=== PATIENT | male | born 1940 | race Caucasian/White ===

== ENCOUNTER 2018-05-04 16:01 | Inpatient (IN) | payer OTHER ==
[~2018-05-04] VITALS: Ht 172.7 cm; Wt 64.2 kg
--- NOTE | 2018-05-04 16:11 | ED MVC/FALL/TRAUMA COMPLAINT ---
History of Present Illness General Chief Complaint: Fall Stated Complaint: MECHANICAL FALL Source: patient Exam Limitations: no limitations Vital Signs & Intake/Output Vital Signs & Intake/Output Vital Signs Date Time Temp Pulse Resp B/P B/P Pulse O2 O2 Flow FiO2 Mean Ox Delivery Rate 05/06 2153 98.5 76 18 122/60 96 Room Air 05/06 1418 98.1 72 18 108/68 96 Room Air 05/06 0621 98.2 62 18 130/72 94 Room Air ED Intake and Output 05/07 0000 05/06 1200 Intake Total 860 240 Output Total 350 700 Balance 510 -460 Intake, IV 30 Intake, Oral 830 240 Output, Urine 350 700 Patient 142 lb Weight Weight Bed scale Measurement Method Triage Nurses Notes Reviewed? yes Onset: Abrupt Duration: minute(s):, constant Timing: single episode today Severity: mild, moderate Method of Injury: fall Loss of Consciousness: no loss of consciousness HPI: 77-year-old male comes into the emergency room for further evaluation of right hip pain after falling in the [employer] parking lot. Patient reports that his feet got caught on the ground and he fell over. denies hitting his head. Denies any neck pain or rib pain. He's got some baseline confusion according to the that's being evaluated by the PCP. She reports that when they found him he was lying on the ground stunned and his eyes were open but he was not responding. He denies any chest pain shortness of breath lightheaded dizziness prior to the fall. He is currently alert and oriented 3. (Michele Wetzel) Allergies Coded Allergies: No Known Allergies (05/05/18) Reconcile Medications Atorvastatin Calcium 10 MG TABLET 1 TAB PO DAILY hl (Reported) Cholecalciferol (Vitamin D3) (Vitamin D3) 1,000 UNIT CAPSULE 1 CAP PO DAILY supplement (Reported) Donepezil HCl 10 MG TABLET 1 TAB PO DAILY dementia (Reported) Enalapril/Hydrochlorothiazide (Enalapril-Hctz 10-25 MG Tablet) 10 MG-25 MG TABLET 1 TAB PO DAILY htn (Reported) Escitalopram Oxalate (Lexapro) 5 MG TABLET 1 TAB PO DAILY DEPRESSION ( Reported) Lorazepam 0.5 MG TABLET 1 TAB PO DAILY NEEDED anxiety (Reported) doesnot take it any more Multivitamin (Multivitamins) 1 EACH CAPSULE 1 CAP PO DAILY SUPPLEMENT ( Reported) (Sara GRIMES,Ricardo Nuñez) Past History Travel History Traveled to [place] past 21 day No Medical History Any Pertinent Medical History? see below for history Other Medical Hx: dementia? Surgical History Surgical History: non-contributory Psychosocial History Where do you live Home Who do you live with Spouse What is your primary language Norwegian Tobacco Use: Never used ETOH Use: denies use Family History Hx Contributory? No (Michele Wetzel) Review of Systems Review of Systems Constitutional: Reports: no symptoms. Eyes: Reports: no symptoms. Ears, Nose, Throat, Mouth: Reports: no symptoms. Respiratory: Reports: no symptoms. Cardiovascular: Reports: no symptoms. Gastrointestinal/Abdominal: Reports: no symptoms. Genitourinary: Reports: no symptoms. Musculoskeletal: Reports: see HPI. Skin: Reports: no symptoms. Neurological/Psychological: Reports: no symptoms. All Other Systems: Reviewed and Negative (Michele Wetzel) Physical Exam Physical Exam General Appearance: well developed/nourished, alert, awake Head: atraumatic Eyes: Bilateral: normal appearance. Ears, Nose, Throat, Mouth: hearing grossly normal, moist mucous membrane Neck: normal inspection Respiratory: no respiratory distress Cardiovascular: regular rate/rhythm Back: normal inspection Extremities: Full range of motion of right hip, some mild pain with internal/ external rotation, Neurologic/Psych: awake, alert, oriented x 3 Skin: intact, normal color Core Measures ACS in differential dx? No CVA/TIA Diagnosis No Sepsis Present: No Sepsis Focused Exam Completed? No (Michele Wetzel) Physical Exam Extremities: Full range of motion of right hip, some mild pain with internal/ external rotation, (Sara GRIMES,Ricardo Nuñez) Progress Differential Diagnosis: abd injury, C/T/L spine injury, ext injury, ICH, pelvis injury, pnemothorax, spinal cord injury Plan of Care: Orders Procedure Date/time Status Gait Training 05/06 UNK Complete Current Medications Sig/Chacha Start time Last Medication Dose Stop Time Status Admin Melatonin 5 MG AT BEDTIME 05/05 2100 AC 05/06 (Melatonin) 211 Atorvastatin Calcium 10 MG 1700 05/05 1700 AC 05/06 (Lipitor) 1842 Cholecalciferol 1,000 IU DAILY 05/05 0900 AC 05/06 (Vitamin D) 0928 Donepezil HCl 10 MG DAILY 05/05 09 AC 05/06 (Aricept) 927 Escitalopram Oxalate 5 MG DAILY 05/05 900 AC 05/06 (Lexapro) 09 Multivitamins 1 TAB DAILY 05/05 900 AC 05/06 (Theragran Vitamins) 927 Heparin Sodium 5,000 UNIT Q8 05/05 600 AC 05/06 (Porcine) 2115 Acetaminophen 650 MG Q4P PRN 05/04 2345 AC 05/06 (Tylenol) 2115 Acetaminophen 1,000 MG Q6P PRN 05/04 2345 AC (Ofirmev) Lisinopril 10 MG DAILY 05/04 2345 AC 05/06 (Prinivil) 927 Tramadol HCl 50 MG Q6 PRN 05/04 2345 AC (Ultram) Laboratory Tests 05/06/18 06: Anion Gap 10, Estimated GFR 58 L, BUN/Creatinine Ratio 22.5, CBC w Diff NO MAN DIFF REQ, RBC 4.00 L, MCV 91.0, MCH 31.5 H, MCHC 34.7, RDW 13.9, MPV 10.0, Gran % 66.4, Lymphocytes % 18.9 L, Monocytes % 10.1 H, Eosinophils % 3.9, Basophils % 0.7, Absolute Granulocytes 5.5, Absolute Lymphocytes 1.6, Absolute Monocytes 0.8 H, Absolute Eosinophils 0.3, Absolute Basophils 0.1 Diagnostic Imaging: Viewed by Me: Radiology Read, CT Scan. Discussed w/RAD: Radiology Read, CT Scan. Radiology Impression: PATIENT: AMY MORTON PRESENT AGE: 77 PATIENT ACCOUNT NO: [id number] : 38 LOCATION: [facility] ORDERING PHYSICIAN: Michele BLANKENSHIP SERVICE DATE: 05/04/18 EXAM TYPE: RAD - XRY-AP PELVIS; XRY-HIP 2-3 VIEWS, RIGHT EXAMINATION: XR PELVIS XR HIP, RIGHT CLINICAL INFORMATION: Right hip pain. Fall. COMPARISON: None TECHNIQUE: AP view of the pelvis and 3 views of the right hip. FINDINGS: Pelvic rings are intact. The sacroiliac joints are not diastatic. Both hips are normally positioned within the acetabular fossa. Specifically, no femoral head or neck fracture is seen. There are degenerative changes in the lower lumbar spine. Vascular calcifications are noted in the aorta and its branch vessels. The soft tissues appear normal. IMPRESSION: No pelvic or right hip fracture. DICTATED BY: Chuckie Sanchez MD DATE/TIME DICTATED:05/04/181801 KINDER TEACHER:STEPHANIE DATE/ TIME TRANSCRIBED:05/04/181801 CONFIDENTIAL, DO NOT COPY WITHOUT APPROPRIATE AUTHORIZATION. <Electronically signed in Other Vendor System> SIGNED BY: Chuckie Sanchez MD 05/04/181807 Initial ED EKG: normal sinus rhythm, rate (66), RBBB (Michele Wetzel) Departure Departure Disposition: HOME OR SELF CARE Condition: Stable Clinical Impression Primary Impression: Inferior pubic ramus fracture Additional Instructions: Take Tylenol as needed for pain. Follow-up with primary care doctor. Return if any concerns worsening symptoms. Please go over all results of today's visit with your primary care doctor. Contact your primary care doctor to let them know you were here in the emergency room. There may be nonspecific findings which may not be related to your visit today here in the emergency room but may require further evaluation and chronic monitoring by your primary care doctor. If you had a laceration today the chance of foreign body always remains. You should follow-up with your primary care doctor for recheck in 3-5 days for a wound check. If you had an x-ray done there is a chance that a fracture could have been missed on initial read and you should follow-up with your primary care doctor for repeat x-rays if symptoms persist. If your blood pressure was elevated here in the emergency room please have rechecked by [facility] primary care doctor within the next 48. If you were prescribed a narcotic here in the emergency room or any type of controlled substances you're not allowed to drive while taking this medication or operate any type of heavy machinery. Narcotics can make you feel lightheaded dizziness nausea and can cause constipation. You may need to medicinal plant picker a stool softener. Thank you for choosing [facility] emergency room. Please return to the emergency room immediately if you have any other concerns worsening of symptoms. Departure Forms: Customer Survey General Discharge Information Admission Note Spoke With: Khloe Rodney MD Documentation of Exam: Documentation of any treatments & extenuating circumstances including Concerns Regarding Discharge (functional status, medication knowledge or non-compliance, living conditions, etc.) that warrant an admission rather than observation: IV pain control. Short-term rehabilitation. Physical therapy. Nonweightbearing. Medically not safe for discharge. (Michele Wetzel) PA/BRIMMING MACHINE OPERATOR Co-Sign Statement Statement: ED Attending supervision documentation- [x] I saw and evaluated the patient. I have also reviewed all the pertinent lab results and diagnostic results. I agree with the findings and the plan of care as documented in the PA's/BRIMMING MACHINE OPERATOR's documentation. Patient presents for evaluation of right hip pain status post fall. Physical examination reveals good range of motion of the right hip with some tenderness on exam. The right lower extremity is neurovascularly intact. [] I have reviewed the ED Record and agree with the PA's/BRIMMING MACHINE OPERATOR's documentation. [] Additions or exceptions (if any) to the PAs/BRIMMING MACHINE OPERATOR's note and plan are summarized below: [] (Sara GRIMES,Ricardo Nuñez)
[2018-05-04 17:26] LABS: ABSOLUTE BASOPHIL COUNT 0.1 /CUMM (0.0-0.2); ABSOLUTE EOSINOPHIL COUNT 0.1 /CUMM (0.0-0.7); ABSOLUTE GRANULOCYTE CT 8.4 /CUMM (1.4-6.5); ABSOLUTE LYMPH COUNT 1.1 /CUMM (1.2-3.4); ABSOLUTE MONOCYTE COUNT 0.7 /CUMM (0.10-0.60); BASOPHIL % 0.7 % (0.0-2.0); EOSINOPHIL % 0.7 % (0-5); GRANULOCYTE % 81.6 % (42.2-75.2); HEMATOCRIT 36.2 % (42-52); MEAN CORPUSCULAR HGB 31.5 PG (27.0-31.0); MEAN CORPUSCULAR HGB CONC 34.2 G/DL (33.0-37.0); MEAN CORPUSCULAR VOLUME 92.3 FL (80.0-94.0); MEAN PLATELET VOLUME 8.6 FL (7.4-10.4); PLATELET COUNT 176 /CUMM (130-400); RBC DISTRIBUTION WIDTH 13.8 % (11.5-14.5); RED BLOOD CELL CT 3.92 /CUMM (4.70-6.10); WHITE BLOOD CELL COUNT 10.3 /CUMM (4.8-10.8)
--- NOTE | 2018-05-04 18:08 | RADIOLOGY REPORT ---
EXAMINATION: XR PELVIS XR HIP, RIGHT CLINICAL INFORMATION: Right hip pain. Fall. COMPARISON: None TECHNIQUE: AP view of the pelvis and 3 views of the right hip. FINDINGS: Pelvic rings are intact. The sacroiliac joints are not diastatic. Both hips are normally positioned within the acetabular fossa. Specifically, no femoral head or neck fracture is seen. There are degenerative changes in the lower lumbar spine. Vascular calcifications are noted in the aorta and its branch vessels. The soft tissues appear normal. IMPRESSION: No pelvic or right hip fracture.
--- NOTE | 2018-05-04 19:53 | CT SCAN REPORT ---
EXAMINATION: CT HEAD WITHOUT CONTRAST CLINICAL INFORMATION: May have hit head. Fall. COMPARISON: None. TECHNIQUE: Contiguous axial imaging was performed from the skull base to vertex without intravenous administration of contrast. DLP: 629.92 mGy-cm FINDINGS: There is no evidence of acute intracranial hemorrhage or territorial infarction. No abnormal mass effect or midline shift is seen. Perez to white matter differentiation is well preserved. No extra-axial fluid collections are identified. There is commensurate prominence of the ventricles and sulci consistent with moderate diffuse volume loss. There are extensive areas of low attenuation in the periventricular and subcortical white matter, consistent with chronic microvascular ischemic disease. There are likely small lacunar infarcts in the basal ganglia bilaterally. There is coarse calcification of the pineal gland. There are atheromatous calcifications of the bilateral cavernous internal carotid arteries and the vertebral arteries. There are no acute osseous findings. There are no large scalp contusions or hematomas. The mastoid air cells are well-aerated. There is significant opacification of the bilateral ethmoid and frontal sinuses. The maxillary sinuses are incompletely visualized. There appear to be sequelae of prior paranasal sinus surgery. IMPRESSION: 1. There are no acute bleeds or territorial infarcts. 2. Extensive white matter changes are consistent with chronic microvascular ischemic disease. A small area of more acute ischemia cannot be excluded on the basis of this study. There is moderate diffuse volume loss. 3. There are no acute fractures, and there are no large scalp contusions or hematomas. 4. There is significant ethmoid and frontal sinus opacification.
--- NOTE | 2018-05-04 21:07 | CT SCAN REPORT ---
EXAMINATION: CT PELVIS WITHOUT CONTRAST CLINICAL INFORMATION: Fall. Pain. Rule out pelvic fracture. COMPARISON: None TECHNIQUE: Helical scanning was performed with submillimeter collimation through the pelvis. Sagittal and coronal multiplanar 2-D reconstructions were obtained. DLP: 426 mGy-cm FINDINGS: There is a nondisplaced acute fracture of the right inferior pubic ramus with minimal comminution along the margins. No discrete fractures are identified at the right superior pubic ramus, however. Old healed fractures are present at both the inferior pubic rami. Left superior pubic ramus is intact. As seen on image 142/466 of series 2, there is a subtle buckle of the anterior cortex of the right sacral ala which is age-indeterminate, possibly acute. No significant displacement. The proximal femurs are intact bilaterally without evidence of femoral neck fracture. 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 Minimal osteoarthritis is present in the SI joints and pubic symphysis. Calcific atherosclerosis is present in the abdominal aorta and iliac arteries. There is a high reading right testicle within the distal aspect of the right inguinal canal. Mild aneurysmal dilatation of the infrarenal abdominal aorta is noted, measuring up to 3 cm in diameter. IMPRESSION: 1. Nondisplaced acute fracture of the right inferior pubic ramus. 2. Subtle cortical buckle at the anterior margin of the right sacral ala, likely corresponding to a nondisplaced acute fracture. 3. No additional acute fractures are identified. 4. Osteopenia
--- NOTE | 2018-05-04 22:06 | History & Physical ---
Filemon Garay MD,[facility] 05/04/186: General Information and HPI MD Statement: I have seen and personally examined AMY MORTON and documented this H&P. The patient is a 77 year old M who presented with a patient stated chief complaint of [fall]. Source of Information: patient, family Exam Limitations: no limitations History of Present Illness: Patient is 77 y M with PMH of HTN, Hlip, dementia, depression, occasional vertigo presented to ED after a fall. Patient's present at the bedside and contributing in history taking. Briefly patient was in usual state of health till this afternoon, he was walking in the [employer] parking lot, he intended to turn and his foot caught on the floor and he fell on his right side of body. Patient's found him later on the wheelchair when he was helped and placed on the wheelchair to other people. According to his he looked shock staring, and open mouth and was not responsive for few seconds, but was later alert and oriented and was initially refusing to come to hospital. According to patient he could remember the whole event, he could see people around him, he denied any head trauma, denied any shortness of breathing, chest pain, palpitation, dizziness, nausea vomiting, slurred speech, lightheadedness before fall. He also denied any shaking motions , urine or stool incontinence. Patient however endorsed pain in the right hip area with standing after the fall. According to his patient has slowed, shoveling gait in baseline and also has history of falls in the past. Patient denied smoking, using any re-creation of drug and reported drinking alcohol rarely. Past History Travel History Traveled to [place] past 21 day No Medical History Other Medical Hx: dementia? Surgical History Surgical History: non-contributory Past Family/Social History Psychosocial History Where do you live? Home ETOH Use: denies use Review of Systems Review of Systems Constitutional: Reports: see HPI. Exam & Diagnostic Data Last 24 Hrs of Vital Signs/I&O Vital Signs Date Time Temp Pulse Resp B/P B/P Pulse O2 O2 Flow FiO2 Mean Ox Delivery Rate 05/047 97.0 75 18 135/87 98 Room Air Room Air 05/04 1954 98.6 78 18 134/88 97 Room Air Room Air 05/04 1618 98.4 84 20 144/99 95 Room Air Room Air Physical Exam General Appearance Alert, Oriented X3, Cooperative, No Acute Distress Skin No Significant Lesion, skin abrasions Skin Temp/Moisture Exam: Warm/Dry Sepsis Skin Exam (color): Normal for Ethnicity HEENT Atraumatic, EOMI, mucous relatively dry, pupils reactive Cardiovascular Regular Rate, Normal S1, Normal S2 Lungs Clear to Auscultation, Normal Air Movement Abdomen Soft, No Tenderness Neurological Normal Gait, Normal Speech, Strength at 5/5 X4 Ext, Cranial Nerves 3-12 NL, refused 3 words exam Extremities No Edema, decreased range of motion in prox R LE due to pain, distal M and sensory normal Last 24 Hrs of Labs/Andre: Laboratory Tests 05/04/18 2310: Troponin I < 0.01 05/04/18 1715: Anion Gap 8, Estimated GFR 53 L, BUN/Creatinine Ratio 27.7 H, Glucose 133 H, Lactic Acid 1.4, Calcium 9.3, Total Bilirubin 0.6, AST 34, ALT 33, Alkaline Phosphatase 61, Creatine Kinase 69, Troponin I < 0.01, Total Protein 6.4, Albumin 3.8, Globulin 2.6, Albumin/Globulin Ratio 1.5, CBC w Diff NO MAN DIFF REQ, RBC 3.92 L, MCV 92.3, MCH 31.5 H, MCHC 34.2, RDW 13.8, MPV 8.6, Gran % 81.6 H, Lymphocytes % 10.4 L, Monocytes % 6.6, Eosinophils % 0.7, Basophils % 0.7, Absolute Granulocytes 8.4 H, Absolute Lymphocytes 1.1 L, Absolute Monocytes 0.7 H, Absolute Eosinophils 0.1, Absolute Basophils 0.1 Assessment/Plan Assessment: Patient is 77 y M presented after fall PMH of HTN, Hlip, dementia, depression, occasional vertigo VS, Ph Ex at admission: No fever, vitals significant Labs at admission: WBC 10.3, Hgb 12.4 Sodium and potassium normal, bicarbonate 32, BUN 36, creatinine 1.3, 10 creatinine ratio 27.7, others in significant Imagings at admission: Head CT: 1. There are no acute bleeds or territorial infarcts. 2. Extensive white matter changes are consistent with chronic microvascular ischemic disease. A small area of more acute ischemia cannot be excluded on the basis of this study. There is moderate diffuse volume loss. 3. There are no acute fractures, and there are no large scalp contusions or hematomas. 4. There is significant ethmoid and frontal sinus opacification. Pelvic, hip x-ray: No pelvic or right hip fracture. Pelvic CT: 1. Nondisplaced acute fracture of the right inferior pubic ramus. 2. Subtle cortical buckle at the anterior margin of the right sacral ala, likely corresponding to a nondisplaced acute fracture. 3. No additional acute fractures are identified. 4. Osteopenia Patient was admitted to telemetry floor for management of following conditions: Fall most likely mechanical Pelvic fracture SOFIA/CKD Chronic medical conditions - admit to GM floor - Bp/radiation monitor overnight - vital signs - gentle hydration after BP control - continue home medication - pain management, avoid sedating medication - Ortho consult - cosider start asprin - asp/fall percautions FC heart healthy diet DVT ppx: alps and pharmacological As Ranked By This Provider Problem List: 1. Inferior pubic ramus fracture Core Measures/Misc (08/09) Acute Coronary Syndrome ACS Diagnosis: No Congestive Heart Failure Congestive Heart Failure Diagnosis No Cerebrovascular Accident CVA/TIA Diagnosis: No VTE (View Protocol) VTE Risk Factors Age>40 No Mechanical VTE Prophylaxis d/t N/A MechProphylax Ordered No VTE Pharm Prophylaxis d/t NA PharmProphylax ordered Sepsis (View protocol) Sepsis Present: No If YES complete Sepsis Event Note If YES complete Sepsis Event Note Marcelino Londono 05/04/18 4922: General Information and HPI Allergies/Medications Home Med list Atorvastatin Calcium 10 MG TABLET 1 TAB PO DAILY hl (Reported) Cholecalciferol (Vitamin D3) (Vitamin D3) 1,000 UNIT CAPSULE 1 CAP PO DAILY supplement (Reported) Donepezil HCl 10 MG TABLET 1 TAB PO DAILY dementia (Reported) Enalapril/Hydrochlorothiazide (Enalapril-Hctz 10-25 MG Tablet) 10 MG-25 MG TABLET 1 TAB PO DAILY htn (Reported) Escitalopram Oxalate (Lexapro) 5 MG TABLET 1 TAB PO DAILY DEPRESSION ( Reported) Multivitamin (Multivitamins) 1 EACH CAPSULE 1 CAP PO DAILY SUPPLEMENT ( Reported) Core Measures/Misc (08/09) Sepsis (View protocol) If YES complete Sepsis Event Note If YES complete Sepsis Event Note Resident Review Statement Resident Statement: examined this patient, discussed with internet webmaster, agreed with internet webmaster Other Findings: Mr. Lynch is a 77-year-old male with past medical history of dementia, depression , previous vertigo, hypertension, hyperlipidemia presented to the emergency department after having of fall associated with brief episode of unresponsiveness. Apparently the patient was doing all right, when he along with his went to [facility] today afternoon prior to presentation, he was walking out of [facility] in the parking lot to its the garden section, when his was trying to put all the shopping bags back in the car when his rubber soled foot got stuck on the ground and he was trying to turn and had a fall on the right side. The fall was witnessed by some people around however his was not with him at that point. The surrounding people try to help him up from the ground and put him on a wheelchair, meanwhile the contacted and after being put on the wheelchair, he was unresponsive and was not responding to her for a few seconds. This unresponsiveness resolved spontaneously and he was then alert oriented and doing fine. He did not have any head trauma. He has had some bruises on the right elbow, and endorse some pain in the right hip area with standing after the fall. At baseline as per the he has shuffling gait and has had a few falls in the past but never anything major. He does walk slowly because of the unsteady gait. His vitals on presentation temperature of 98.6, pulse of 84, respiration of 20, blood pressure 144/99, he was saturating 95% on room air. Physical exam he was alert oriented 3, not in any acute distress however mild pain present on movement in the right hip area, right elbow had mild abrasions. Cardiovascular : S1-S2 present, no murmur. Lungs clear to auscultation, normal air movement. Abdomen soft nontender. Neurological nonfocal. Extremities no edema, pulses palpable bilaterally, sensations intact. Relevant labs white count of 10.4, H/H of 12.4/36.2, platelet of 176. Sodium of 138, potassium 3.9, BUN/creatinine 36/1.3, glucose of 133, lactic acid of 1.4, liver function tests within normal limits. Initial set of troponin was negative. Hip x-ray did not show any pelvic or right hip fracture X-ray pelvis showed intact pelvic bone. CT pelvis showed nondisplaced acute fracture of the right inferior pubic ramus, subtle cortical buckle at the anterior margin of the right sacral ala, likely corresponding to a nondisplaced acute fracture, no other acute fractures and osteopenia. CT head did not show any acute bleeds or infarcts, extensive white matter changes consistent with chronic microvascular ischemic disease, no acute fracture or scalp contusion/hematoma's, significant ethmoid and frontal sinus opacification. Problem list along with assessment and plan. Problem #1 mechanical fall associated with? Syncope/unresponsiveness for couple of seconds. * Continue to monitor on telemetry for any cardiac arrhythmias, continue to monitor intakes and output, continue to monitor vital signs, check orthostatic vital signs, continue generous hydration p.o., continue fall precautions, seizure precautions, aspiration precautions. * Ortho consult in a.m. * continue to monitor serial troponin and EKG, echocardiogram in a.m. * cardiology consult. #2 Pubic Rami and sacral Alar fracture. * Ortho consult in a.m. * PT/OT evaluation. * Evaluation for possible STI placement. * Most likely the above fractures will be treated conservatively, however further management per Ortho. * Continue pain management with Tylenol and tramadol for severe pain. #3.Hyperlipidemia. * Continue atorvastatin 10 mg daily. #4 depression. * Continue Lexapro 5 mg daily. #5 alzheimer * Continue Aricept 10 mg daily. #6 history of hypertension. * Continue lisinopril 10 mg daily. Patient is full code. Regular diet. DVT prophylaxis with heparin. Pain management with p.o. and IV Tylenol and tramadol. Khloe Rodney 05/05/18 0601: General Information and HPI Allergies/Medications Allergies: Coded Allergies: No Known Allergies (05/05/18) Core Measures/Misc (08/09) Sepsis (View protocol) If YES complete Sepsis Event Note If YES complete Sepsis Event Note Attending MD Review Statement Attending Statement Attending MD Statement: examined this patient, discuss w/resident/PA/PERSONAL SECRETARY, agreed w/resident/PA/PERSONAL SECRETARY, reviewed EMR data (avail), reviewed images, amended to note Attending Assessment/Plan: CC: Fall PMH: HTN, dementia, depression, HLD Patient states that he was outside the [employer] after grocery shopping, waiting for his to get a car, when he fell down it twisted leg on his buttocks because he felt that his shoe was stuck to ground and he could not move. It has happened to him in the past and he had multiple falls similar to this. Possibly worse by help him to sit on a wheelchair. At that time came back and found him more confused for a few minutes, staring eyes so EMS was called and patient was brought in ER. Patient denies any head trauma, presyncopal symptoms, lightheadedness, dizziness, any prodromal symptoms. Patient complains of right groin pain and hip pain, mostly while change in position other than that complete ROS unremarkable Vitals: Temperature 98.4, pulse 84, RR 20, blood pressure 144/99, saturating 94% on room air On exam: A O 3, cooperative, no acute distress, neck supple, JVD normal, no lymphadenopathy, mucosa moist, no focal neurological deficit, no dependent edema , no obvious skin rashes or inflammation CVS: S1-S2, RRR. RS: Clear to auscultate bilaterally. Abdomen: Soft, NT, ND, bowel sounds present. Pelvis CT without contrast: 1. Nondisplaced acute fracture of the right inferior pubic ramus. 2. Subtle cortical buckle at the anterior margin of the right sacral ala, likely corresponding to a nondisplaced acute fracture. 3. No additional acute fractures are identified. 4. Osteopenia CT head: 1. There are no acute bleeds or territorial infarcts. 2. Extensive white matter changes are consistent with chronic microvascular ischemic disease. A small area of more acute ischemia cannot be excluded on the basis of this study. There is moderate diffuse volume loss. 3. There are no acute fractures, and there are no large scalp contusions or hematomas. 4. There is significant ethmoid and frontal sinus opacification. Assessment and plan 77-year-old male was brought in ER after what appears to be mechanical fall. Patient had right groin pain after the fall, currently he gets with movements. Patient's noticed him to be confused for a few minutes after the fall and had staring spell. Even though patient recalls part of the fall memory is little blurred immediately after fall this syncope should be ruled out. Patient benefits admission on telemetry. Concussion is another possibility. + Fall + Rule out syncope + Right inferior pubic ramus and right sacral pallor fracture + History of HTN, dementia, depression, HLD - Admit to telemetry - Continuous telemetry monitoring - Serial troponin and EKG - Orthostatic vitals - 2-D echocardiogram in a.m. - Cardiology consult - DVT prophylaxis - Adequate pain control - Orthopedic consult - OT PT evaluation - Fall precaution - Evaluate for STIR
[2018-05-04] MEDS ORDERED: ESCITALOPRAM OXA5 MG PO (23:13)
[2018-05-04] MEDS ORDERED: ENALAPRIL-HCTZ1 EACH PO (23:13)
[2018-05-04] MEDS ORDERED: ATORVASTATIN CA10 M1 PO (23:13)
[2018-05-04] MEDS ORDERED: DONEPEZIL HCL10 M1 PO (23:13)
[2018-05-04] MEDS ORDERED: LORAZEPAM0.5 M1 PO (23:14)
[2018-05-04] MEDS ORDERED: VITAMIN D31000 UNI1 PO (23:14)
[2018-05-04] MEDS ORDERED: MULTIVITAMINS1 EAC8 PO (23:15)
[2018-05-04] MEDS ORDERED: LEXAPRO5 M1 PO (23:15)
[2018-05-05 00:44] VITALS: BP 112/56
[2018-05-05 05:50] LABS: ABSOLUTE BASOPHIL COUNT 0 /CUMM (0.0-0.2); ABSOLUTE EOSINOPHIL COUNT 0.1 /CUMM (0.0-0.7); ABSOLUTE GRANULOCYTE CT 8.9 /CUMM (1.4-6.5); ABSOLUTE LYMPH COUNT 1.4 /CUMM (1.2-3.4); ABSOLUTE MONOCYTE COUNT 0.8 /CUMM (0.10-0.60); BASOPHIL % 0.3 % (0.0-2.0); GRANULOCYTE % 78.9 % (42.2-75.2); HEMATOCRIT 36.3 % (42-52); MEAN CORPUSCULAR HGB 31.2 PG (27.0-31.0); MEAN CORPUSCULAR VOLUME 91.6 FL (80.0-94.0); MEAN PLATELET VOLUME 9.1 FL (7.4-10.4); PLATELET COUNT 160 /CUMM (130-400); RED BLOOD CELL CT 3.97 /CUMM (4.70-6.10); WHITE BLOOD CELL COUNT 11.3 /CUMM (4.8-10.8)
--- NOTE | 2018-05-05 06:03 | Admission Certification ---
Admission Certification Certification Statement - As attending physician, I certify that at the time of - admission, based on clinical presentation, severity of - symptoms, need for further diagnostic testing and - therapeutic interventions, and risk of adverse outcomes - without in-hospital treatment, in my clinical assessment, - this patient requires an acute hospital stay for a minimum - of two nights or longer. I have also considered psychsocial - factors such as support system, advanced age, financial - issues, cognitive issues, and failed out-patient treatments, - past re-admission history, safety of patient, and lack of - compliance as applicable. Specific rationale supporting this admission is: Fall, right pubic ramus fracture
[2018-05-05 07:07] VITALS: BP 120/56
--- NOTE | 2018-05-05 07:10 | PN- Housestaff ---
Yadira GRIMES,Karissa 05/05/18 0710: Subjective Follow-up For: Fall Rule out syncope Right inferior pubic ramus and right sacral pallor fracture History of HTN, dementia, depression, HLD Tele-Events Since Last Visit: Normal sinus rhythm, 64, 0.16, 0.2, bundle branch block Subjective: Patient was seen and examined at bedside, no overnight events, stable vitals, denies any complaints other than pain in his right hip Review of Systems Constitutional: Reports: see HPI. Objective Last 24 Hrs of Vital Signs/I&O Vital Signs Date Time Temp Pulse Resp B/P B/P Pulse O2 O2 Flow FiO2 Mean Ox Delivery Rate 05/05 0707 98.2 67 12 120/56 95 Room Air 05/05 0044 99.0 68 12 112/56 98 Room Air 05/05 0017 97.0 75 18 135/87 05/04 2257 97.0 75 18 135/87 98 Room Air Room Air 05/04 1954 98.6 78 18 134/88 97 Room Air Room Air 05/04 1618 98.4 84 20 144/99 95 Room Air Room Air Intake & Output 05/05 1600 05/05 0800 05/05 0000 Intake Total Output Total 100 Balance -100 Output, Urine 100 Patient 133 lb 150 lb Weight Weight Bed scale Estimated Measurement Method Physical Exam General Appearance: Alert, Oriented X3, Cooperative, No Acute Distress HEENT: Atraumatic, PERRLA, EOMI, Mucous Membr. moist/pink Neck: Supple, No JVD Cardiovascular: Normal S1, Normal S2 Lungs: Clear to Auscultation Abdomen: Normal Bowel Sounds, Soft, No Tenderness Extremities: No Clubbing, No Cyanosis, No Edema Assessment/Plan Assessment: 77-year-old male was admitted a mechanical fall. Patient had right groin pain after the fall, with staring spells, the patient had denied any symptoms before or after the episode. He said that it was mainly mechanical because his shows stuck on the floor. EKG showed right bundle branch block Problem list: Fall Right inferior pubic ramus and right sacral fracture Rule out syncope Right bundle branch block History of hypertension dementia depression and hyperlipidemia Plan Continue to monitor on telemetry - Serial troponin and EKG were negative which ruled out ACS - Orthostatic vitals were negative -Follow-up on 2-D echocardiogram -Follow-up on cardiology recommended - Adequate pain control - Orthopedic consult - OT PT evaluation for discharge recommendation - Fall precaution -Obtain the records especially EKG from his PCP to check if that bundle branch block is new or old Patient is full code. Regular diet. DVT prophylaxis with heparin. Pain management with p.o. and IV Tylenol and tramadol. Problem List: 1. Inferior pubic ramus fracture 2. Contusion of right hip Pain Ratin Pain Location: Right Hip Pain Goal: Pain 4 or less Pain Plan: [facility] Labs & Rationales: CBC, BEP InesDanisha 05/05/18 1316: Attending MD Review Statement Attending Statement Attending MD Statement: examined this patient, discuss w/resident/PA/SHELLFISH SORTER, agreed w/resident/PA/SHELLFISH SORTER, discussed with family, reviewed EMR data (avail), discussed with nursing, discussed with case mgmt, reviewed images, amended to note Attending Assessment/Plan: Patient here after fall and questionable epsiode of loss of consciousness. Patient sustained pubic ramus fracture. EKG was found to have abnormal bifasicicular block and wide right bundle branch block. Patient admitted to telemetry for likely syncope as described by . Obtain previosu EKG and obtain cardiology cosnult and further evalauiton. Obtain ECHO. Continue telemetry monitoring, Orhtopedics consult, PT consult for dc planning. Fall precautions. gi/dvt porphylaxis full code
--- NOTE | 2018-05-05 10:11 | Cons- Cardiology ---
General Information and HPI Consulting Request Date of Consult: 05/05/18 Requested By: Danisha Chacon MD Reason for Consult: Fall; ? presyncope / syncope ; abnormal ECG with RBBB/LAFB Source of Information: patient Exam Limitations: no limitations History of Present Illness: The patient is a 77-year-old male. His past medical history is remarkable for hypertension, hyperlipidemia, mild dementia, etc. Patient is now admitted to the hospital after falling yesterday and having a pubic ramus fracture. Apparently the patient was doing well, he was walking in the [employer] parking lot. In the process of turning, his foot caught the floor and he fell. His found him. According to the records, the noted that the patient was staring with an open mouth and was not responsive for several seconds. Subsequently he was alert and oriented and unchanged from baseline. The patient feels that he was awake during the entire episode however. No other abnormalities were detected such as neurologic symptoms, seizure activity, etc. There was no evidence of incontinence. Allergies/Medications Allergies: Coded Allergies: No Known Allergies (05/05/18) Home Med List: Atorvastatin Calcium 10 MG TABLET 1 TAB PO DAILY hl (Reported) Cholecalciferol (Vitamin D3) (Vitamin D3) 1,000 UNIT CAPSULE 1 CAP PO DAILY supplement (Reported) Donepezil HCl 10 MG TABLET 1 TAB PO DAILY dementia (Reported) Enalapril/Hydrochlorothiazide (Enalapril-Hctz 10-25 MG Tablet) 10 MG-25 MG TABLET 1 TAB PO DAILY htn (Reported) Escitalopram Oxalate (Lexapro) 5 MG TABLET 1 TAB PO DAILY DEPRESSION ( Reported) Lorazepam 0.5 MG TABLET 1 TAB PO DAILY NEEDED anxiety (Reported) doesnot take it any more Multivitamin (Multivitamins) 1 EACH CAPSULE 1 CAP PO DAILY SUPPLEMENT ( Reported) Current Medications: Current Medications Sig/Chacha Start time Last Medication Dose Route Stop Time Status Admin Acetaminophen 650 MG Q4P PRN 05/04 2345 AC PO Acetaminophen 1,000 MG Q6P PRN 05/04 2345 AC IV Atorvastatin Calcium 10 MG 1700 05/05 1700 AC PO Cholecalciferol 1,000 IU DAILY 05/05 09 AC PO Donepezil HCl 10 MG DAILY 05/05 09 AC PO Escitalopram Oxalate 5 MG DAILY 05/05 09 AC PO Heparin Sodium 5,000 UNIT Q8 05/05 0600 AC 05/05 (Porcine) SC 0547 Ibuprofen 400 MG ONCE ONE 05/04 2000 DC 05/04 PO 05/04 Ibuprofen 0 .STK-MED ONE 05/04 1957 DC PO Lisinopril 0 .STK-MED ONE 05/05 0024 DC PO Lisinopril 10 MG DAILY 05/04 2345 AC 05/05 PO 0017 Multivitamins 1 TAB DAILY 05/05 09 AC PO Tramadol HCl 50 MG Q6 PRN 05/04 2345 AC PO Past History Travel History Traveled to [place] past 21 day No Medical History Blood Transfusion Hx: No Neurological: dementia EENT: NONE Cardiovascular: hypertension Respiratory: NONE Gastrointestinal: NONE Hepatic: NONE Renal: NONE Musculoskeletal: NONE Psychiatric: NONE Endocrine: NONE Blood Disorders: NONE Cancer(s): 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 Surgical History Surgical History: non-contributory Psychosocial History Where Do You Live? Home Smoking Status: Never Smoked ETOH Use: denies use Exam & Diagnostic Data Vital Signs and I&O Vital Signs Date Time Temp Pulse Resp B/P B/P Pulse O2 O2 Flow FiO2 Mean Ox Delivery Rate 05/05 0707 98.2 67 12 120/56 95 Room Air 05/05 0044 99.0 68 12 112/56 98 Room Air 05/05 0017 97.0 75 18 135/87 05/04 2257 97.0 75 18 135/87 98 Room Air Room Air 05/04 1954 98.6 78 18 134/88 97 Room Air Room Air 05/04 1618 98.4 84 20 144/99 95 Room Air Room Air Intake & Output 05/05 1600 05/05 0800 05/05 0000 05/04 1600 05/04 0800 05/04 0000 Intake Total Output Total 350 Balance -350 Output, Urine 350 Patient 133 lb 150 lb Weight Weight Bed scale Estimated Measurement Method Physical Exam: General Appearance: well developed/nourished, elderly male, alert, awake, oriented Head: normal HEENT: Normal Neck: supple, JVP normal, carotid upstrokes normal bilaterally, no masses or thyromegaly Respiratory: chest non-tender, clear to auscultation and percussion bilaterally Cardiovascular: regular rate/rhythm, normal S1, S2, 1/6 systolic murmur Abdomen: normal bowel sounds, soft, non-tender Extremities: normal inspection, no edema Vascular: Pulses are 2+ and equal bilaterally Neurologic: Grossly normal/nonfocal Labs/Andre Results: Laboratory Tests 05/05 05/04 0510 2310 Chemistry Sodium (137 - 145 mmol/L) 138 Potassium (3.5 - 5.1 mmol/L) 3.4 L Chloride (98 - 107 mmol/L) 98 Carbon Dioxide (22 - 30 mmol/L) 29 Anion Gap (5 - 16) 11 BUN (9 - 20 mg/dL) 30 H Creatinine (0.7 - 1.2 mg/dL) 1.2 Estimated GFR (>60 ml/min) 58 L BUN/Creatinine Ratio (7 - 25 %) 25.0 Troponin I (<0.11 ng/ml) < 0.01 < 0.01 Hematology CBC w Diff NO MAN DIFF REQ WBC (4.8 - 10.8 /CUMM) 11.3 H RBC (4.70 - 6.10 /CUMM) 3.97 L Hgb (14.0 - 18.0 G/DL) 12.4 L Hct (42 - 52 %) 36.3 L MCV (80.0 - 94.0 FL) 91.6 MCH (27.0 - 31.0 PG) 31.2 H MCHC (33.0 - 37.0 G/DL) 34.0 RDW (11.5 - 14.5 %) 14.0 Plt Count (130 - 400 /CUMM) 160 MPV (7.4 - 10.4 FL) 9.1 Gran % (42.2 - 75.2 %) 78.9 H Lymphocytes % (20.5 - 51.1 %) 12.8 L Monocytes % (1.7 - 9.3 %) 7.0 Eosinophils % (0 - 5 %) 1.0 Basophils % (0.0 - 2.0 %) 0.3 Absolute Granulocytes (1.4 - 6.5 /CUMM) 8.9 H Absolute Lymphocytes (1.2 - 3.4 /CUMM) 1.4 Absolute Monocytes (0.10 - 0.60 /CUMM) 0.8 H Absolute Eosinophils (0.0 - 0.7 /CUMM) 0.1 Absolute Basophils (0.0 - 0.2 /CUMM) 0 05/04 1715 Chemistry Sodium (137 - 145 mmol/L) 138 Potassium (3.5 - 5.1 mmol/L) 3.9 Chloride (98 - 107 mmol/L) 97 L Carbon Dioxide (22 - 30 mmol/L) 32 H Anion Gap (5 - 16) 8 BUN (9 - 20 mg/dL) 36 H Creatinine (0.7 - 1.2 mg/dL) 1.3 H Estimated GFR (>60 ml/min) 53 L BUN/Creatinine Ratio (7 - 25 %) 27.7 H Glucose (65 - 99 mg/dL) 133 H Lactic Acid (0.7 - 2.1 mmol/L) 1.4 Calcium (8.4 - 10.2 mg/dL) 9.3 Total Bilirubin (0.2 - 1.3 mg/dL) 0.6 AST (17 - 59 U/L) 34 ALT (21 - 72 U/L) 33 Alkaline Phosphatase (< 127 U/L) 61 Creatine Kinase (55 - 170 U/L) 69 Troponin I (<0.11 ng/ml) < 0.01 Total Protein (6.3 - 8.2 g/dL) 6.4 Albumin (3.5 - 5.0 g/dL) 3.8 Globulin (1.9 - 4.2 gm/dL) 2.6 Albumin/Globulin Ratio (1.1 - 2.2 %) 1.5 Hematology CBC w Diff NO MAN DIFF REQ WBC (4.8 - 10.8 /CUMM) 10.3 RBC (4.70 - 6.10 /CUMM) 3.92 L Hgb (14.0 - 18.0 G/DL) 12.4 L Hct (42 - 52 %) 36.2 L MCV (80.0 - 94.0 FL) 92.3 MCH (27.0 - 31.0 PG) 31.5 H MCHC (33.0 - 37.0 G/DL) 34.2 RDW (11.5 - 14.5 %) 13.8 Plt Count (130 - 400 /CUMM) 176 MPV (7.4 - 10.4 FL) 8.6 Gran % (42.2 - 75.2 %) 81.6 H Lymphocytes % (20.5 - 51.1 %) 10.4 L Monocytes % (1.7 - 9.3 %) 6.6 Eosinophils % (0 - 5 %) 0.7 Basophils % (0.0 - 2.0 %) 0.7 Absolute Granulocytes (1.4 - 6.5 /CUMM) 8.4 H Absolute Lymphocytes (1.2 - 3.4 /CUMM) 1.1 L Absolute Monocytes (0.10 - 0.60 /CUMM) 0.7 H Absolute Eosinophils (0.0 - 0.7 /CUMM) 0.1 Absolute Basophils (0.0 - 0.2 /CUMM) 0.1 Diagnostic Data EKG Results Sinus rhythm; bifascicular block; QRS 180 ms; nonspecific ST-T changes diffusely Other Results IMPRESSION: 1. Nondisplaced acute fracture of the right inferior pubic ramus. 2. Subtle cortical buckle at the anterior margin of the right sacral ala, likely corresponding to a nondisplaced acute fracture. 3. No additional acute fractures are identified. 4. Osteopenia Assessment/Plan Assessment/Plan Assessment: 1. Probable mechanical fall with pubic ramus fracture 2. Possible transient unresponsiveness 3. Abnormal EKG with bifascicular block and wide right bundle branch block 4. History of hypertension 5. Mild acute renal insufficiency-improving Recommendations: -By history, it appears that the patient had a mechanical fall. However, there is a transient episode of unresponsiveness described by the reportedly. -In view of the significant abnormal EKG, I would do some further cardiac evaluation. -Keep the patient on flour tester for 24 hours -Echocardiogram to rule out structural heart disease -Obtain copy of last ECG from primary care physician office for comparison -Follow-up with cardiology as outpatient. Consult Acknowledgment - Thank you for your consult request.
[2018-05-05 10:37] VITALS: BP 98/60
[2018-05-05 11:54] VITALS: BP 118/62
[2018-05-05 14:03] VITALS: BP 110/60
--- NOTE | 2018-05-05 14:08 | Cons- Orthopedic ---
General Information and HPI Consulting Request Date of Consult: 05/05/18 Requested By: Danisha Chacon MD Reason for Consult: Right pubic rami fracture. Source of Information: patient History of Present Illness: Patient is a 77-year-old male in his usual state of health had a fall at home and suffered a right inferior pubic rami fracture nondisplaced. He had difficulty with ambulation was brought to [facility] emergency room I did review his CAT scan which shows a nondisplaced right inferior pubic rami fracture. His hips are normal on the CAT scans. Allergies/Medications Allergies: Coded Allergies: No Known Allergies (05/05/18) Home Med List: Atorvastatin Calcium 10 MG TABLET 1 TAB PO DAILY hl (Reported) Cholecalciferol (Vitamin D3) (Vitamin D3) 1,000 UNIT CAPSULE 1 CAP PO DAILY supplement (Reported) Donepezil HCl 10 MG TABLET 1 TAB PO DAILY dementia (Reported) Enalapril/Hydrochlorothiazide (Enalapril-Hctz 10-25 MG Tablet) 10 MG-25 MG TABLET 1 TAB PO DAILY htn (Reported) Escitalopram Oxalate (Lexapro) 5 MG TABLET 1 TAB PO DAILY DEPRESSION ( Reported) Lorazepam 0.5 MG TABLET 1 TAB PO DAILY NEEDED anxiety (Reported) doesnot take it any more Multivitamin (Multivitamins) 1 EACH CAPSULE 1 CAP PO DAILY SUPPLEMENT ( Reported) Past History Medical History Blood Transfusion Hx: No Neurological: dementia EENT: NONE Cardiovascular: hypertension Respiratory: NONE Gastrointestinal: NONE Hepatic: NONE Renal: NONE Musculoskeletal: NONE Psychiatric: NONE Endocrine: NONE Blood Disorders: NONE Cancer(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 Surgical History Pertinent Surgical History: non-contributory Psychosocial History Where Do You Live? Home Smoking Status: Never Smoked ETOH Use: denies use Exam & Diagnostic Data Vital Signs and I&O Vital Signs Date Time Temp Pulse Resp B/P B/P Pulse O2 O2 Flow FiO2 Mean Ox Delivery Rate 05/05 1403 98.0 68 18 110/60 97 Room Air 05/05 1154 66 118/62 05/05 1037 63 98/60 05/05 0707 98.2 67 12 120/56 95 Room Air 05/05 0044 99.0 68 12 112/56 98 Room Air 05/05 0017 97.0 75 18 135/87 05/04 2257 97.0 75 18 135/87 98 Room Air Room Air 05/04 195 98.6 78 18 134/88 97 Room Air Room Air 05/04 1618 98.4 84 20 144/99 95 Room Air Room Air Intake & Output 05/05 1600 05/05 0800 05/05 0000 05/04 1600 05/04 0800 05/04 0000 Intake Total Output Total 100 350 Balance -100 -350 Number 1 Bowel Movements Output, Urine 100 350 Patient 133 lb 150 lb Weight Weight Bed scale Estimated Measurement Method Physical Exam: On physical examination he is alert oriented male complaining of some right pelvic pain. He has no pain with range of motion of the hip joints. His knees and ankles and foot have perfect motion bilaterally. He is neurologically fully intact in both lower extremities no change in bowel or bladder function. As mentioned I did review his CAT scan which showed a nondisplaced right inferior pubic rami fracture. Assessment/Plan Assessment/Plan Assessment is right inferior pubic rami fracture the plan is no surgical intervention necessary to ambulate weightbearing as tolerated with rolling walker I did alert the patient at this will take 2-6 weeks before he starts feeling really comfortable the fracture will take about 6 weeks to heal. If he is having issues at 6 weeks he should come back to my office in consultation. Consult Acknowledgment - Thank you for your consult request. Attending MD Review Statement Attending Statement Attending MD Statement: examined this patient
--- NOTE | 2018-05-05 19:19 | ECHOCARDIOGRAM REPORT ---
AMY MORTON Age: 77 : 1940 Gender: M Exam Date: 05/05/2018 10:51 Exam Location: 1 [address] Ht (in): 68 Wt (lb): 133 BSA: 1.70 BP: 98 / 60 Ordering Physician: MAKAYLA RINCON MD Referring Physician: MAKAYLA RINCON MD Technologist: Bennie Gerardo AGUSTIN Room Number: 180-2 Indications: Hypertension Rhythm: Sinus Technical Quality: Fair, Technically difficult study FINDINGS Left Ventricle Normal left ventricular wall motion. No obvious regional wall motion abnormalities. Normal size left ventricle. Normal left ventricular ejection fraction estimated at 55-60%. Right Ventricle Right ventricle not well visualized, grossly normal. Right Atrium Normal right atrial size. Left Atrium Normal left atrial size. Mitral Valve Mitral valve thickened. Trace to mild mitral regurgitation. Aortic Valve Trileaflet aortic valve. Diffuse thickening of the aortic valve cusps with reduced excursion. Mild aortic stenosis. Mild aortic regurgitation. Tricuspid Valve Tricuspid valve not well visualized, grossly normal. Mild tricuspid regurgitation. Right ventricular systolic pressure estimated at 26 mmHg. Pulmonic Valve Pulmonic valve not well visualized, grossly normal. Pericardium Small pericardial effusion. Great Vessels Aortic root and proximal ascending aorta not well visualized, grossly normal. CONCLUSIONS 1. This was a technically difficult examination 2. Fibrocalcific degeneration is present in the aortic valve with evidence of mild valvular stenosis and insufficiency. The estimated aortic valve area is 2.6 cm2. 3. Mitral leaflet thickening is present with minimal to mild mitral insufficiency. 4. A very small pericardial effusion is present 5. The left ventricular chamber size and systolic functio appear normal 6. Mild tricuspid insufficiency is present with no evidence of pulmonary hypertension. Lambert Nolan M.D. (Electronically Signed) Final Date: 05 May 2018 19:19 MEASUREMENTS (Male / Female) Normal Values 2D ECHO LV Diastolic Diameter PLAX 4.1 cm 4.2 - 5.9 / 3.9 - 5.3 cm LV Systolic Diameter PLAX 2.5 cm 2.1 - 4.0 cm LV Fractional Shortening PLAX 39.0 % 25 - 46 % LV Ejection Fraction 2D Teich 69.9 % IVS Diastolic Thickness 1.1 cm LVPW Diastolic Thickness 1.1 cm LV Relative Wall Thickness 0.5 LVOT Diameter 2.3 cm Aortic Root Diameter 3.2 cm LA Systolic Diameter LX 2.0 cm 3.0 - 4.0 / 2.7 - 3.8 cm Ascending Aorta Diameter 3.6 cm DOPPLER AV Peak Velocity 203.0 cm/s AV Peak Gradient 16.5 mmHg AV Mean Velocity 142.0 cm/s AV Mean Gradient 9.0 mmHg AV Velocity Time Integral 45.1 cm AI Deceleration [place] 207.5 cm/s AI Peak Velocity 351.5 cm/s AI Pressure Half Time 497.0 ms AI Peak Gradient 49.4 mmHg LVOT Peak Velocity 120.0 cm/s LVOT Peak Gradient 5.8 mmHg LVOT Mean Velocity 73.3 cm/s LVOT Mean Gradient 3.0 mmHg LVOT Velocity Time Integral 23.5 cm LVOT Stroke Volume 97.6 cm AV Area Cont Eq vti 2.2 cm AV Area Cont Eq pk 2.5 cm MV Peak Velocity 86.9 cm/s MV Peak Gradient 3.0 mmHg MV Mean Velocity 54.4 cm/s MV Mean Gradient 1.0 mmHg Mitral E Point Velocity 50.3 cm/s Mitral A Point Velocity 78.5 cm/s Mitral E to A Ratio 0.6 MV PHT Velocity 81.4 cm/s MV Deceleration [place] 211.0 cm/s MV Pressure Half Time 115.7 ms MV Area PHT 1.9 cm MV Deceleration Time 299.0 ms TR Peak Velocity 221.0 cm/s TR Peak Gradient 19.5 mmHg Right Atrial Pressure 5.0 mmHg Pulmonary Artery Systolic Pressu 24.5 mmHg Right Ventricular Systolic Press 24.5 mmHg PV Peak Velocity 91.0 cm/s PV Peak Gradient 3.3 mmHg PV Mean Velocity 57.9 cm/s PV Mean Gradient 2.0 mmHg PV Velocity Time Integral 21.0 cm LV E' Lateral Velocity 8.0 cm/s Mitral E to LV E' Lateral Ratio 6.3 LV E' Septal Velocity 5.8 cm/s Mitral E to LV E' Septal Ratio 8.7
[2018-05-05 21:32] VITALS: BP 110/68
[2018-05-06 06:21] VITALS: BP 130/72
--- NOTE | 2018-05-06 07:08 | PN- Housestaff ---
Yadira GRIMES,Karissa 05/06/18 0707: Subjective Follow-up For: Fall Rule out syncope Right inferior pubic ramus and right sacral pallor fracture History of HTN, dementia, depression, HLD Tele-Events Since Last Visit: Normal sinus rhythm, 60, 0.16, 0.2, bundle branch block Subjective: Patient was seen and examined, he denies any complaints, he reports feeling better than yesterday and was able to stand up and use a roller walker, the patient was not able to safely use the stairs was physical therapy, well try tomorrow and if not safe for discharge to [facility] Review of Systems Constitutional: Reports: see HPI. Objective Last 24 Hrs of Vital Signs/I&O Vital Signs Date Time Temp Pulse Resp B/P B/P Pulse O2 O2 Flow FiO2 Mean Ox Delivery Rate 05/06 1418 98.1 72 18 108/68 96 Room Air 05/06 0621 98.2 62 18 130/72 94 Room Air 05/05 2132 98.1 67 18 110/68 97 Room Air Intake & Output 05/06 1600 05/06 0800 05/06 0000 Intake Total 510 240 100 Output Total 350 700 150 Balance 160 -460 -50 Intake, IV 30 Intake, Oral 480 240 100 Number 1 Bowel Movements Output, Urine 350 700 150 Patient 143 lb Weight Weight Bed scale Measurement Method Physical Exam General Appearance: Alert, Oriented X3, Cooperative, No Acute Distress HEENT: Atraumatic, PERRLA, EOMI, Mucous Membr. moist/pink Neck: Supple, No JVD Cardiovascular: Normal S1, Normal S2 Lungs: Clear to Auscultation Abdomen: Normal Bowel Sounds, Soft, No Tenderness Extremities: No Cyanosis, No Edema Assessment/Plan Assessment: 77-year-old male was admitted a mechanical fall. Patient had right groin pain after the fall, with staring spells, the patient had denied any symptoms before or after the episode. He said that it was mainly mechanical because his shows stuck on the floor. EKG showed right bundle branch block Problem list: Fall Right inferior pubic ramus and right sacral fracture Rule out syncope Right bundle branch block History of hypertension dementia depression and hyperlipidemia Plan Continue to monitor on telemetry - Serial troponin and EKG were negative which ruled out ACS - Orthostatic vitals were negative - 2-D echocardiogram: NORMAL -Follow-up on cardiology recommended - Adequate pain control - Orthopedic consult - OT PT evaluation for discharge recommendation - Fall precaution the patient was not able to safely use the stairs was physical therapy, well try tomorrow and if not safe for discharge to [facility] Patient is full code. Regular diet. DVT prophylaxis with heparin. Pain management with p.o. and IV Tylenol and tramadol. Problem List: 1. Inferior pubic ramus fracture Pain Ratin Pain Location: RIGHT HIP Pain Goal: Pain 4 or less Pain Plan: PATHWAY Tomorrow's Labs & Rationales: N/A InesDanisha 05/06/18 1124: Attending MD Review Statement Attending Statement Attending MD Statement: examined this patient, discuss w/resident/PA/SHEET FOLDER, agreed w/resident/PA/SHEET FOLDER, discussed with family, reviewed EMR data (avail), discussed with nursing, discussed with case mgmt, reviewed images, amended to note Attending Assessment/Plan: Patient here after fall and questionable epsiode of loss of consciousness. Nondisplaced acute fracture of the right inferior pubic ramus. EKG was found to have abnormal bifasicicular block and wide right bundle branch block which is same as compared to previous ekg. cardiology cosnulted. ECHO with no RWMA and EF 55-60%. Continue telemetry monitoring, dc if ok with cardiology Orhtopedics consult with no surgical intervention, PT consult for dc planning. Fall precautions. gi/dvt porphylaxis full code anticipate dc planning in next 24 hrs based on PT recommendations.
[2018-05-06 07:55] LABS: ABSOLUTE BASOPHIL COUNT 0.1 /CUMM (0.0-0.2); ABSOLUTE EOSINOPHIL COUNT 0.3 /CUMM (0.0-0.7); ABSOLUTE GRANULOCYTE CT 5.5 /CUMM (1.4-6.5); ABSOLUTE LYMPH COUNT 1.6 /CUMM (1.2-3.4); ABSOLUTE MONOCYTE COUNT 0.8 /CUMM (0.10-0.60); BASOPHIL % 0.7 % (0.0-2.0); EOSINOPHIL % 3.9 % (0-5); GRANULOCYTE % 66.4 % (42.2-75.2); HEMATOCRIT 36.4 % (42-52); MEAN CORPUSCULAR HGB 31.5 PG (27.0-31.0); MEAN CORPUSCULAR HGB CONC 34.7 G/DL (33.0-37.0); PLATELET COUNT 145 /CUMM (130-400); RBC DISTRIBUTION WIDTH 13.9 % (11.5-14.5); WHITE BLOOD CELL COUNT 8.3 /CUMM (4.8-10.8)
--- NOTE | 2018-05-06 10:04 | Patient Discharge Instructions ---
Discharge Instructions General Discharge Information You were seen/treated for: Fall Nondisplaced right inferior pubic rami fracture Special Instructions: -Please follow up with your PCP within one week after discharge. -Please follow up with construction secretary Dr. Nolan after discharge. -Please walk with rolling walker weightbearing as tolerated. -Please follow up orthpedic surgon after 6 weeks if you still have discomfort. -Please note that the healing time for your fracture is up to 6 weeks. Activity Other activity limits: Weightbearing as tolerated with rolling walker Acute Coronary Syndrome Inclusion Criteria At DC or during hospital stay patient has or had the following: ACS DIAGNOSIS No Discharge Core Measures Meds if any: Prescribed or Continued at Discharge Meds if any: NOT Prescribed or Continued at Discharge Congestive Heart Failure Inclusion Criteria At DC or during hospital stay patient has or had the following: CHF DIAGNOSIS No Discharge Core Measures Meds if any: Prescribed or Continued at Discharge Meds if any: NOT Prescribed or Continued at Discharge Cerebrovascular accident Inclusion Criteria At DC or during hospital stay patient has or had the following: CVA/TIA Diagnosis No Discharge Core Measures Meds if any: Prescribed or Continued at Discharge Meds if any: NOT Prescribed or Continued at Discharge Venous thromboembolism Inclusion Criteria VTE Diagnosis No VTE Type NONE VTE Confirmed by (Test) NONE Discharge Core Measures - Per Current guidelines, there needs to be overlap - treatment for the first 5 days of Warfarin therapy. - If discharged on Warfarin prior to 5 days of - overlap therapy, the patient will need to be - assessed for post discharge needs including - *Post discharge parental anticoagulation - *Warfarin and/or parental anticoagulation education - *Follow up date to check INR post discharge At least 5 days overlap therapy as Inpatient No Meds if any: Prescribed or Continued at Discharge Note: Overlap Therapy is Warfarin and Anticoagulant Meds if any: NOT Prescribed or Continued at Discharge
--- NOTE | 2018-05-06 13:43 | Discharge Summary ---
Visit Information Visit Dates Admission Date: 05/04/18 Discharge Date: 05/07/18 Hospital Course Course Attending Physician: Danisha Chacon MD Primary Care Physician: Trevor Cotto MD Hospital Course: Mr. Barkley is 77-year-old male with past medical history significant for hypertension, dementia, depression, hyperlipidemia who presented to ED after a witnessed mechanical fall, he described it as his shoe was stuck to ground and he could not move [facility]. Patient was admitted to telemetry floor for reports of confusion after the fall. Patient denied any predormal symptoms such as lightheadedness, chest pain or palpitation. CT head negative for for acute bleeds or infarction however revealed extensive white matter changes consistent with chronic microvascular ischemic disease associated with moderate diffuse volume loss. Pelvic CT without contrast revealed nondisplaced acute fracture of right inferior pubic rami. Patient had no telemetry events during his hospital stay. Cardiology consultation was obtained to rule out any arrhythmia given history of confusion and questionable LOC. EKG showed bifascicular block and white right bundle branch block that turned to be chronic changes based on the EKG obtained from PCP office. Echocardiogram was unrevealing. PT evaluation was obtained and patient was cleared for home discharge with home health services. Echocardiogram 05/06/18 CONCLUSIONS 1. This was a technically difficult examination 2. Fibrocalcific degeneration is present in the aortic valve with evidence of mild valvular stenosis and insufficiency. The estimated aortic valve area is 2.6 cm2. 3. Mitral leaflet thickening is present with minimal to mild mitral insufficiency. 4. A very small pericardial effusion is present 5. The left ventricular chamber size and systolic functio appear normal 6. Mild tricuspid insufficiency is present with no evidence of pulmonary hypertension. Patient states that he was outside the [employer] after grocery shopping, waiting for his to get a car, when he fell down it twisted leg on his buttocks because he felt that his shoe was stuck to ground and he could not move. It has happened to him in the past and he had multiple falls similar to this. Possibly worse by help him to sit on a wheelchair. At that time came back and found him more confused for a few minutes, staring eyes so EMS was called and patient was brought in ER. Patient denies any head trauma, presyncopal symptoms, lightheadedness, dizziness, any prodromal symptoms. Patient complains of right groin pain and hip pain, mostly while change in position other than that complete ROS unremarkable Allergies: Coded Allergies: No Known Allergies (05/05/18) Disposition Summary Disposition Principal Diagnosis: Nondisplaced acute fracture of right inferior pubic rami Additional Diagnosis: none Discharge Disposition: home health services Discharge Instructions General Discharge Information Code Status: Full Code Patient's Diet: regular Patient's Activity: Ambulate weightbearing as tolerated with rolling walker Follow-Up Instructions/Appts: -Please follow up with your PCP within one week after discharge. -Please follow up with [employer] assistant manager Dr. Nolan after discharge. -Please walk with rolling walker weightbearing as tolerated. -Please follow up orthpedic surgon after 6 weeks if you still have discomfort. -Please note that the healing time for your fracture is up to 6 weeks. Medications at Discharge Discharge Medications: Stop taking the following medications: Lorazepam (Lorazepam) 0.5 MG TABLET ORAL DAILY NEEDED as needed for ANXIETY Qty = 30 Continue taking these medications: Donepezil HCl (Donepezil HCl) 10 MG TABLET 1 Tablet ORAL DAILY Qty = 45 Comments: Last Taken:05/07/18 Time:0800 AM Enalapril/Hydrochlorothiazide (Enalapril-Hctz 10-25 MG Tablet) 10 MG-25 MG TABLET 1 Tablet ORAL DAILY Qty = 90 Comments: NOT GIVEN IN HOSPITAL Atorvastatin Calcium (Atorvastatin Calcium) 10 MG TABLET 1 Tablet ORAL DAILY Qty = 90 Comments: Last Taken:05/06/18 Time:645 PM Cholecalciferol (Vitamin D3) (Vitamin D3) 1,000 UNIT CAPSULE 1 Capsule ORAL DAILY Comments: Last Taken:05/07/18 Time:0800 AM Multivitamin (Multivitamins) 1 EACH CAPSULE 1 Capsule ORAL DAILY Comments: Last Taken:05/07/18 Time:0800 AM Escitalopram Oxalate (Lexapro) 5 MG TABLET 1 Tablet ORAL DAILY Comments: Last Taken:05/07/18 Time:0802 Copies To: Concha GRIMES,Ino Jackson; Yadiel GRIMES,rTevor Hurst; An GRIMES,Aguila Tanner Attending MD Review Statement Documenting Attending: Danisha Chacon MD Other Findings: Patient here after fall and Nondisplaced acute fracture of the right inferior pubic ramus. EKG was found to have abnormal bifasicicular block and wide right bundle branch block which is same as compared to previous ekg. cardiology cosnulted. ECHO with no RWMA and EF 55-60%. Orhtopedics consult with no surgical intervention, PT recommend STR. FOLLOW UP PCP in 1-2 weeks of discharge Orthopedics in 6 weeks of discharge.
[2018-05-06 14:18] VITALS: BP 108/68
--- NOTE | 2018-05-06 16:13 | PN- Cardiology ---
Subjective Subjective: stable, sleeping quiet Objective Vital Signs and I&Os Vital Signs Date Time Temp Pulse Resp B/P B/P Pulse O2 O2 Flow FiO2 Mean Ox Delivery Rate 05/06 1418 98.1 72 18 108/68 96 Room Air 05/06 0621 98.2 62 18 130/72 94 Room Air 05/05 2132 98.1 67 18 110/68 97 Room Air Intake & Output 05/06 1600 05/06 0800 05/06 0000 05/05 1600 05/05 0805/05 0000 Intake Total 510 240 100 590 Output Total 350 700 150 350 350 Balance 160 -460 -50 240 -350 Intake, IV 30 30 Intake, Oral 480 240 100 560 Number 1 1 Bowel Movements Output, Urine 350 700 150 350 350 Patient 143 lb 133 lb 150 lb Weight Weight Bed scale Bed scale Estimated Measurement Method Current Medications: Current Medications Sig/Chacha Start time Last Medication Dose Route Stop Time Status Admin Acetaminophen 650 MG .STK-MED ONE 05/05 2025 DC PO 05/05 2026 Acetaminophen 650 MG Q4P PRN 05/04 2345 AC 05/06 PO 1423 Acetaminophen 1,000 MG Q6P PRN 05/04 2345 AC IV Atorvastatin Calcium 10 MG 1700 05/05 1700 AC 05/05 PO 1600 Cholecalciferol 1,000 IU DAILY 05/05 09 AC 05/06 PO 0928 Donepezil HCl 10 MG DAILY 05/05 09 AC 05/06 PO 0928 Escitalopram Oxalate 5 MG DAILY 05/05 0900 AC 05/06 PO 0928 Heparin Sodium 5,000 UNIT Q8 05/05 06 AC 05/06 (Porcine) SC 1428 Lisinopril 10 MG DAILY 05/04 2345 AC 05/06 PO 0928 Melatonin 5 MG AT BEDTIME 05/05 2100 AC 05/05 PO 2135 Multivitamins 1 TAB DAILY 05/05 09 AC 05/06 PO 0928 Potassium Chloride 40 MEQ ONCE ONE 05/05 1715 DC 05/05 PO 05/05 171 1735 Tramadol HCl 50 MG Q6 PRN 05/04 2345 AC PO Results Last 48 Hrs of Labs/Mics: Laboratory Tests 05/06/18 0603: Anion Gap 10, Estimated GFR 58 L, BUN/Creatinine Ratio 22.5, CBC w Diff NO MAN DIFF REQ, RBC 4.00 L, MCV 91.0, MCH 31.5 H, MCHC 34.7, RDW 13.9, MPV 10.0, Gran % 66.4, Lymphocytes % 18.9 L, Monocytes % 10.1 H, Eosinophils % 3.9, Basophils % 0.7, Absolute Granulocytes 5.5, Absolute Lymphocytes 1.6, Absolute Monocytes 0.8 H, Absolute Eosinophils 0.3, Absolute Basophils 0.1 05/05/18 0510: Anion Gap 11, Estimated GFR 58 L, BUN/Creatinine Ratio 25.0, Troponin I < 0.01, CBC w Diff NO MAN DIFF REQ, RBC 3.97 L, MCV 91.6, MCH 31.2 H, MCHC 34.0, RDW 14.0, MPV 9.1, Gran % 78.9 H, Lymphocytes % 12.8 L, Monocytes % 7.0, Eosinophils % 1.0, Basophils % 0.3, Absolute Granulocytes 8.9 H, Absolute Lymphocytes 1.4, Absolute Monocytes 0.8 H, Absolute Eosinophils 0.1, Absolute Basophils 0 05/04/18 2310: Troponin I < 0.01 05/04/18 1715: Anion Gap 8, Estimated GFR 53 L, BUN/Creatinine Ratio 27.7 H, Glucose 133 H, Lactic Acid 1.4, Calcium 9.3, Total Bilirubin 0.6, AST 34, ALT 33, Alkaline Phosphatase 61, Creatine Kinase 69, Troponin I < 0.01, Total Protein 6.4, Albumin 3.8, Globulin 2.6, Albumin/Globulin Ratio 1.5, CBC w Diff NO MAN DIFF REQ, RBC 3.92 L, MCV 92.3, MCH 31.5 H, MCHC 34.2, RDW 13.8, MPV 8.6, Gran % 81.6 H, Lymphocytes % 10.4 L, Monocytes % 6.6, Eosinophils % 0.7, Basophils % 0.7, Absolute Granulocytes 8.4 H, Absolute Lymphocytes 1.1 L, Absolute Monocytes 0.7 H, Absolute Eosinophils 0.1, Absolute Basophils 0.1 Assessment/Plan Assessment/Plan y.Assessment: 1. Probable mechanical fall with pubic ramus fracture 2. Possible transient unresponsiveness 3. Abnormal EKG with bifascicular block and wide right bundle branch block 4. History of hypertension 5. Mild acute renal insufficiency-improving Recommendations: -At the moment, there appeared to be no new cardiac issues. -Patient's ECG is unchanged from previously. -Echocardiogram unrevealing. -From a cardiac standpoint, the patient is stable for discharge. -The patient can follow-up with me as needed as an outpatient. Continue telemetry? No
[2018-05-06 21:53] VITALS: BP 122/60
[2018-05-07 06:00] VITALS: BP 110/64
--- NOTE | 2018-05-07 07:14 | PN- Housestaff ---
Yadira GRIMES,Karissa 05/07/18 0714: Subjective Follow-up For: Fall Rule out syncope Right inferior pubic ramus and right sacral pallor fracture History of HTN, dementia, depression, HLD Tele-Events Since Last Visit: Normal sinus rhythm, 60, 0.16, 0.2, bundle branch block Subjective: Patient was seen and examined, he denies any complaints, he reports feeling well , he was able to work with physical therapy and was found to be safe to be discharged home with physical therapy Review of Systems Constitutional: Reports: see HPI. Objective Last 24 Hrs of Vital Signs/I&O Vital Signs Date Time Temp Pulse Resp B/P B/P Pulse O2 O2 Flow FiO2 Mean Ox Delivery Rate 05/07 0802 68 110/64 05/07 0600 98.0 68 18 110/64 95 05/06 2153 98.5 76 18 122/60 96 Room Air 05/06 1418 98.1 72 18 108/68 96 Room Air Intake & Output 05/07 1600 05/07 0800 05/07 0000 Intake Total 200 350 Output Total Balance 200 350 Intake, Oral 200 350 Patient 142 lb Weight Weight Bed scale Measurement Method Physical Exam General Appearance: Alert, Oriented X3, Cooperative, No Acute Distress HEENT: Atraumatic, PERRLA, EOMI, Mucous Membr. moist/pink Cardiovascular: Normal S1, Normal S2 Lungs: Clear to Auscultation Abdomen: Normal Bowel Sounds, Soft, No Tenderness Neurological: Normal Speech Extremities: No Clubbing, No Cyanosis, No Edema Assessment/Plan Assessment: 77-year-old male was admitted a mechanical fall. Patient had right groin pain after the fall, with staring spells, the patient had denied any symptoms before or after the episode. He said that it was mainly mechanical because his shows stuck on the floor. EKG showed right bundle branch block Problem list: Fall Right inferior pubic ramus and right sacral fracture Rule out syncope Right bundle branch block History of hypertension dementia depression and hyperlipidemia Plan Continue to monitor on telemetry - Serial troponin and EKG were negative which ruled out ACS - Orthostatic vitals were negative - 2-D echocardiogram: NORMAL -Follow-up on cardiology recommended - Adequate pain control - Orthopedic consult - OT PT evaluation for discharge recommendation - Fall precaution the patient is a stable for discharge home today with home physical therapy Patient is full code. Regular diet. DVT prophylaxis with heparin. Pain management with p.o. and IV Tylenol and tramadol. Problem List: 1. Inferior pubic ramus fracture Pain Ratin Pain Location: N/A Pain Goal: Remain pain free Pain Plan: [facility] Labs & Rationales: N/A Danisha Chacon 05/07/18 1215: Attending MD Review Statement Attending Statement Attending MD Statement: examined this patient, discuss w/resident/PA/LEAD BLENDER, agreed w/resident/PA/LEAD BLENDER, discussed with family, reviewed EMR data (avail), discussed with nursing, discussed with case mgmt, reviewed images, amended to note Attending Assessment/Plan: Patinet no new complaints. Await PT follow up and discharge planning to home with PT or STR. Medically stable for discharge. Follow up with PCP and cardiology after dsicharge. Orhtopedics in 6 weeks.
[2018-05-07 08:02] VITALS: BP 110/64
--- NOTE | 2018-05-07 13:12 | Discharge Summary ---
Hospital Course Allergies: Coded Allergies: No Known Allergies (05/05/18) Discharge Instructions Medications at Discharge Discharge Medications: Stop taking the following medications: Lorazepam (Lorazepam) 0.5 MG TABLET ORAL DAILY NEEDED as needed for ANXIETY Qty = 30 Continue taking these medications: Donepezil HCl (Donepezil HCl) 10 MG TABLET 1 Tablet ORAL DAILY Qty = 45 Comments: Last Taken:05/07/18 Time:0800 AM Enalapril/Hydrochlorothiazide (Enalapril-Hctz 10-25 MG Tablet) 10 MG-25 MG TABLET 1 Tablet ORAL DAILY Qty = 90 Comments: NOT GIVEN IN HOSPITAL Atorvastatin Calcium (Atorvastatin Calcium) 10 MG TABLET 1 Tablet ORAL DAILY Qty = 90 Comments: Last Taken:05/06/18 Time:645 PM Cholecalciferol (Vitamin D3) (Vitamin D3) 1,000 UNIT CAPSULE 1 Capsule ORAL DAILY Comments: Last Taken:05/07/18 Time:0800 AM Multivitamin (Multivitamins) 1 EACH CAPSULE 1 Capsule ORAL DAILY Comments: Last Taken:05/07/18 Time:0800 AM Escitalopram Oxalate (Lexapro) 5 MG TABLET 1 Tablet ORAL DAILY Comments: Last Taken:05/07/18 Time:0802
--- NOTE | 2018-05-07 13:24 | PN- Cardiology ---
Subjective Subjective: Doing well. No new symptoms. Objective Vital Signs and I&Os Vital Signs Date Time Temp Pulse Resp B/P B/P Pulse O2 O2 Flow FiO2 Mean Ox Delivery Rate 05/07 0802 68 110/64 05/07 0600 98.0 68 18 110/64 95 05/06 2153 98.5 76 18 122/60 96 Room Air 05/06 1418 98.1 72 18 108/68 96 Room Air Intake & Output 05/07 1600 05/07 0800 05/07 0000 05/06 1600 05/06 0800 05/06 0000 Intake Total 200 350 510 240 100 Output Total 350 700 150 Balance 200 350 160 -460 -50 Intake, IV 30 Intake, Oral 200 350 480 240 100 Number 1 Bowel Movements Output, Urine 350 700 150 Patient 142 lb 143 lb Weight Weight Bed scale Bed scale Measurement Method Current Medications: Current Medications Sig/Chacha Start time Last Medication Dose Route Stop Time Status Admin Acetaminophen 650 MG .STK-MED ONE 05/06 2033 DC PO 05/06 203 Acetaminophen 650 MG .STK-MED ONE 05/06 1413 DC PO 05/06 1414 Acetaminophen 650 MG Q4P PRN 05/04 2345 AC 05/06 PO 2116 Acetaminophen 1,000 MG Q6P PRN 05/04 2345 AC IV Aspirin 81 MG DAILY 05/07 0900 CAN PO Atorvastatin Calcium 10 MG 1700 05/05 1700 AC 05/06 PO 1842 Cholecalciferol 1,000 IU DAILY 05/05 0900 AC 05/07 PO 0802 Donepezil HCl 10 MG DAILY 05/05 0900 AC 05/07 PO 0802 Escitalopram Oxalate 5 MG DAILY 05/05 0900 AC 05/07 PO 0802 Heparin Sodium 5,000 UNIT Q8 05/05 06 AC 05/07 (Porcine) SC 0624 Lisinopril 10 MG DAILY 05/04 2345 AC 05/07 PO 0802 Melatonin 5 MG AT BEDTIME 05/05 2100 AC 05/06 PO 2116 Multivitamins 1 TAB DAILY 05/05 09 AC 05/07 PO 0802 Tramadol HCl 50 MG Q6 PRN 05/04 2345 AC PO Results Last 48 Hrs of Labs/Mics: Laboratory Tests 05/06/18 06: Anion Gap 10, Estimated GFR 58 L, BUN/Creatinine Ratio 22.5, CBC w Diff NO MAN DIFF REQ, RBC 4.00 L, MCV 91.0, MCH 31.5 H, MCHC 34.7, RDW 13.9, MPV 10.0, Gran % 66.4, Lymphocytes % 18.9 L, Monocytes % 10.1 H, Eosinophils % 3.9, Basophils % 0.7, Absolute Granulocytes 5.5, Absolute Lymphocytes 1.6, Absolute Monocytes 0.8 H, Absolute Eosinophils 0.3, Absolute Basophils 0.1 Assessment/Plan Assessment/Plan Assessment: 1. Probable mechanical fall with pubic ramus fracture 2. Possible transient unresponsiveness 3. Abnormal EKG with bifascicular block and wide right bundle branch block 4. History of hypertension 5. Mild acute renal insufficiency-improving Recommendations: -At the moment, there appeared to be no new cardiac issues. -Patient's ECG is unchanged from previously. -Echocardiogram unrevealing. -From a cardiac standpoint, the patient is stable for discharge. -The patient can follow-up with me as needed as an outpatient. Continue telemetry? No
== END 2018-05-07 14:16 | disposition home health service (06) | DRG 536 ==
LOC: ERH 16:01 → ERHI 22:39 → 1NO 22:39 → ENRESERV 23:36 → 1NO 05-05 00:35 → ENPENDDIS 05-07 11:48 → ENTRNSPT 05-07 13:42 → EDTRNSPT 05-07 13:58 → EDTRNSPTSTS 05-07 13:58 → CMPTRNSPT 05-07 14:05 → 1NO 05-07 14:16 → CMPTRNSPT 05-08 06:59
PROVIDERS: Internal Medicine; Physician Assistant Medical; Student in an Organized Health Care Education/Training Program
DX: S32.591A Other specified fracture of right pubis, initial encounter for closed fracture (principal); S32.19XA Other fracture of sacrum, initial encounter for closed fracture; I45.2 Bifascicular block; G30.9 Alzheimer's disease, unspecified; F02.80 Dementia in other diseases classified elsewhere, unspecified severity, without behavioral disturbance, psychotic disturbance, mood disturbance, and anxiety; I45.10 Unspecified right bundle-branch block; N28.9 Disorder of kidney and ureter, unspecified; W18.30XA Fall on same level, unspecified, initial encounter; F32.9 Major depressive disorder, single episode, unspecified; Y92.512 Supermarket, store or market as the place of occurrence of the external cause; Z91.81 History of falling; I10 Essential (primary) hypertension; E78.5 Hyperlipidemia, unspecified
CPT/HCPCS: 1NSP; ERO; 36592; 72170; 73502-RT; 82436; 93005; 93010; 93306; 97110-GO; 97116-GO; 97161-GP; 97530-GO; J1644